=== PATIENT | male | born 1970 | race Caucasian/White ===

== ENCOUNTER 2018-01-08 13:21 | Emergency (ER) | payer SELFPAY ==
[2018-01-08] MEDS ORDERED: LIDOCAINE HCL 2% (50ML VIAL) SQ ONE (13:32)
--- NOTE | 2018-01-08 13:49 | PDOC ---
History of Present Illness - General Chief Complaint: Laceration Stated Complaint: LACERATION RT 4TH FINGER Time Seen by Provider: 01/08/18 13:28 - History of Present Illness Initial Comments: The patient is a 47M w/ a history of T2DM, HLD, anxiety who presents for evaluation of a laceration to his left ring finger 2/2 circular saw. The patient states that he was cutting wood when his hand slipped on the the blade. The patient states that he still has sensation in his distal ring finger. Patient denies any other injury. Injury occurred just FIELD AIDE. Patient denies fevers/chills, chest pain, SOB, abdominal pain, or change in sensation. 01/08/18 13:35 Past History - Past Medical History Allergies/Adverse Reactions: Allergies Allergy/AdvReac Type Severity Reaction Status Date / Time No Known Allergies Allergy Verified 01/08/18 13:22 Home Medications: Ambulatory Orders Cephalexin Monohydrate [Keflex -] 500 mg PO BID 7 Days #14 capsule 01/08/18 Review of Systems - Review of Systems Able to Perform ROS?: Yes Comments:: GENERAL/CONSTITUTIONAL: No fever or chills. No weakness CARDIOVASCULAR: No chest pain or shortness of breath RESPIRATORY: No cough, wheezing, or hemoptysis MUSCULOSKELETAL: +R ring finger laceration SKIN: No rash NEUROLOGIC: No loss of consciousness, or change in strength/sensation HEMATOLOGIC/LYMPHATIC: No anemia, easy bleeding, or history of blood clots ALLERGIC/IMMUNOLOGIC: No hives or skin allergy 01/08/18 13:49 Is the patient limited Swedish proficient: No *Physical Exam - Physical Exam Comments: GENERAL: Awake, alert, and fully oriented, in no acute distress HEAD: No signs of trauma, normocephalic, atraumatic EYES: PERRL, EOMI, sclera anicteric, conjunctiva clear ENT: Hearing grossly normal, nares patent, oropharynx clear without exudates. Moist mucosa NECK: Normal ROM, supple, no lymphadenopathy LUNGS: No distress, speaks full sentences, clear to auscultation bilaterally HEART:Regular rate and rhythm, normal S1 and S2, no murmurs appreciated, peripheral pulses normal and equal bilaterally ABDOMEN: Soft, nontender, normoactive bowel sounds. No guarding, no rebound. No masses NEUROLOGICAL: Cranial nerves II through XII grossly intact. Normal speech, normal gait, no focal sensorimotor deficits SKIN: Warm, Dry, normal turgor, no rashes or lesions noted RUE: Inspection: No erythema or ecchymosis. No tenderness, no obvious abnormalities, no open wounds. Compartments soft and compressible, pain within proportion, no pain to passive stretch Sensation: sensation present to light touch m/r/u n? Motor: intact AIN/PIN/Ulnar in hand; _/5 Wrist flex/ext; _/5 Elbow flex/ext; _/ 5 Shoulder ABd,Flex Vascular: 2+ radial pulse palpated, BCR all fingers <2 sec. LUE: Inspection: No erythema or ecchymosis. No tenderness, no obvious abnormalities, no open wounds. Compartments soft and compressible, pain within proportion, no pain to passive stretch Sensation: sensation present to light touch m/r/u n? Motor: intact AIN/PIN/Ulnar in hand; _/5 Wrist flex/ext; _/5 Elbow flex/ext; _/ 5 Shoulder ABd,Flex Vascular: 2+ radial pulse palpated, BCR all fingers <2 sec. 01/08/18 13:53 Procedures - Laceration/Wound Repair Right 4th digit Wound Length: 2.6 to 5.0 cm Wound's Depth, Shape: superficial Irrigated w/ Saline: Yes Betadine Prep: Yes Anesthesia: 2% Lidocaine Wound Debrided: minimal Wound Repaired With: Sutures Suture Size/Type: 5:0 Number of Sutures: 13 Progress: Indication: Laceration Mathematics Professor: Thai Razo MD Supervising MD: Miguelina Smallwood MD Indications, risks, and benefits explained to patient and verbal informed consent obtained. Laceration location & length: 3cm Anesthesia was performed with 2% lidocaine without epinephrine. The wound was irrigated with 7cc of NS under pressure. The patient was prepped and draped in usual fashion. Repair type: Simple: repair involving routine debridement & decontamination, simple one layer closure, superficial tissues, sutures/jeramy/tissue adhesives, total length of several repairs in same code category. 01/08/18 17:29 ED Treatment Course - RADIOLOGY Radiology Studies Ordered: Category Date Time Status HAND- LEFT [RAD] Stat Radiology 01/08/18 13:32 Ordered *DC/Admit/Observation/Transfer Diagnosis at time of Disposition: Laceration of left hand Qualifiers: Encounter type: initial encounter Foreign body presence: unspecified Qualified Code(s): S61.412A - Laceration without foreign body of left hand, initial encounter - Discharge Dispostion Disposition: HOME Condition at time of disposition: Stable Decision to Admit order: No - Prescriptions Prescriptions: Cephalexin Monohydrate [Keflex -] 500 mg PO BID 7 Days #14 capsule - Referrals Referrals: Mickey Baker MD [Staff Physician] - - Patient Instructions Printed Discharge Instructions: DI for Laceration Repair -- Finger Additional Instructions: You were seen in the Emergency Department for a finger laceration. Please wash the wound everyday with soap and running water. Pat dry. Sutures will need to be removed in 7-10 days. You may return to the Emergency Room to have your sutures removed. Please review the handouts provided at discharge. Follow up with your PCP within the next 1-3 days. Return to the Emergency Room if you have increasing pain, purulent drainage, or redness, fevers, or new concerning symptoms. - Post Discharge Activity
--- NOTE | 2018-01-08 13:50 | PDOC ---
Attending Attestation - Resident Resident Name: Thai Razo - ED Attending Attestation I have performed the following: I have examined & evaluated the patient, The case was reviewed & discussed with the resident, I agree w/resident's findings & plan, Exceptions are as noted - HPI HPI: 47 yo M presents with lacerations to L 4th finger due to injury by circular saw. Denies any change in sensation. - Physicial Exam PE: GENERAL: Awake, alert, and fully oriented, in no acute distress HEAD: No signs of trauma EYES: PERRLA, EOMI, sclera anicteric, conjunctiva clear ENT: Auricles normal inspection, hearing grossly normal, nares patent, oropharynx clear without exudates. Moist mucosa EXTREMITIES: Normal range of motion, no edema. No clubbing or cyanosis. No cords, erythema, or tenderness NEUROLOGICAL: Cranial nerves II through XII grossly intact. Normal speech, normal gait SKIN: Warm, Dry, normal turgor, no rashes. +2 lacerations to the L 4th finger- linear, into subcutaneous tissue, no tendon involvement. Distal N/V intact. - Medical Decision Making Pt with laceration to hand due to circular saw. XR obtained, poss linear FB as per radiology reading. Will explore wound at time of repair.
[2018-01-08 14:22] VITALS: BP 144/98; PULSE 94; TEMP 98.1; BMI 26.5
[2018-01-08] MEDS ORDERED: DIPHTH,PERTUSS(ACELL),TET 0.5 ML DISP.SYRIN IM ONE (15:19)
== END 2018-01-08 15:48 | disposition home or self-care (01) ==
LOC: FER 13:21
PROC: 0HQGXZZ Repair Left Hand Skin, External Approach (ICD-10-PCS; principal; 2018-01-08)
PROC: 3E0234Z Introduction of Serum, Toxoid and Vaccine into Muscle, Percutaneous Approach (ICD-10-PCS; 2018-01-08)
DX: S61.215A Laceration without foreign body of left ring finger without damage to nail, initial encounter (principal); W29.8XXA Contact with other powered hand tools and household machinery, initial encounter; Y93.89 Activity, other specified; Y92.9 Unspecified place or not applicable; E11.9 Type 2 diabetes mellitus without complications; E78.5 Hyperlipidemia, unspecified; F41.9 Anxiety disorder, unspecified
CPT/HCPCS: 73130-TC-LR-FY; 90715; 99282-25